=== PATIENT | male | born 1940 | race Caucasian/White ===

== ENCOUNTER 2016-11-26 08:32 | Inpatient (IN) | payer BC ==
--- NOTE | ~2016-11-26 | CO ---
Unit #: [id number] #: [id number] Patient: EMIR WILLIS [id number] [address] [place], [place] [address] [id number] MR#: [id number] NAME: EMIR WILLIS. ROOM: [facility] Age: 76 Sex: M Admission Date: 11/26/2016 : 1940 Attending Physician: Sascha Zamora M.D. Primary Care Physician: Pedrito Ramsey M.D. Consultation Date: 11/25/2016 CONSULTATION REPORT REASON FOR CONSULTATION Perioperative management of hemophilia B. HISTORY OF PRESENT ILLNESS Mr. Emir Willis is 76-year-old with a history of hemophilia B requires elective colonoscopy as well as inguinal hernia repair. 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 He is recommended to receive preop BeneFix 9200 units to restore levels to 100% prior to surgery followed by 5 days postop for total of 10 doses. Mr. Willis tells me he has generally been feeling well apart from having pain in his right groin. Hemophilia was diagnosed about 25 years ago after a long history of bleeding from childhood. His first episode when he had some teeth pulled and thereafter with shoulder surgery. He has been having factor replacement with BeneFix. He recently developed inguinal hernia after a hip injection. PAST MEDICAL HISTORY Hypertension, hemophilia B, degenerative arthritis. PAST SURGICAL HISTORY None recently. Previous teeth extraction and shoulder surgery. FAMILY HISTORY Younger brother with hemophilia. He has one son, who is probably hemophilia. He has sister. SOCIAL HISTORY Never smoker. Rarely drinks a beer. He is single. REVIEW OF SYSTEMS 14-point review of systems was taken. CONSTITUTIONAL: No recent change in appetite and weight. EYES: Negative. EARS, NOSE, MOUTH AND THROAT: Negative. CARDIOVASCULAR: Negative. RESPIRATORY: Negative. GASTROINTESTINAL: Negative. MUSCULOSKELETAL: Pain related to this hernia. GENITOURINARY: Negative. ALLERGIC/LYMPHATIC: Negative. SKIN: Negative. PSYCHIATRIC: Negative. Unit #: [id number] #: [id number] Patient: EMIR WILLIS PHYSICAL EXAMINATION GENERAL: He is a pleasant elderly man, awake, alert, and oriented x3. VITAL SIGNS: Admission vitals, temperature 98.8, pulse rate 96, respiratory rate 18, blood pressure 136/58, O2 saturation 96% on room air. HEENT: Shows pupils are equal and reactive well to light. No pallor or icterus. Mucous membranes are moist. NECK: Without adenopathy, JVD, or thyromegaly. CARDIOVASCULAR: First and second heart sounds are regular with no murmurs, gallops, or rubs. LUNGS: Chest expansion is symmetric bilaterally. Normal breath sounds. ABDOMEN: Soft, nontender. EXTREMITIES: Warm, good pulses. No edema, cyanosis, or clubbing. NEUROLOGIC: He is awake, alert, and oriented x3 without any focal findings. PSYCHIATRIC: Normal affect. SKIN: Negative. LYMPHATIC: Negative. DIAGNOSTIC STUDIES LABORATORY RESULTS: CBC with a white count of 16,300, hemoglobin is 13.9. ASSESSMENT AND PLAN Mr. Emir Willis is a 76-year-old with a history of mild hemophilia B who was to have a colonoscopy for a positive stool Hemoccult as well as elective right inguinal hernia repair. I discussed the BeneFix replacement with nursing as well as Dr. Guzman of Anesthesia with plans to have it administered and now postop. Subsequently, he will receive BeneFix or similar factor IX replacement every 12 hours for total of 10 doses that is 5 days with intention of restoring factor IX levels to 100%. I subsequently spoke to pharmacy. Apparently, Mr. Willis insurance only covers 80% of the cost leaving him response for 20% which will be unaffordable. He has currently 27260 units from [facility] and we will plan to get other factor IX replacements from manufacturers to see whether this can be used in the postop period following discharge home. Visiting nurses will administer the product at home. Thank you for allowing me to participate in his care. Dictated by... Heron Leigh M.D. DAVID/shana TD: 11/28/2016 00:55 JOB #: [id number] CONSULTATION REPORT X Heron Leigh MD X CONSULTATION REPORT
--- NOTE | ~2016-11-26 | DS ---
Unit #: [id number] #: [id number] Patient: SEYMOUR STEVEN [id number] [address] [place], [place] [address] [id number] MR#: [id number] NAME: SEYMOUR STEVEN ROOM: 470 Age: 76 Sex: M Admission Date: 11/26/2016 : 1940 Discharge Date: Attending Physician: Sascha Zamora M.D. Primary Care Physician: Pedrito Ramsey M.D. DISCHARGE SUMMARY HISTORY Mr. Steven is a 76-year-old gentleman who presented to the office with some intermittent rectal bleeding and a right inguinal hernia. Due to his history of hemophilia, he was seen by Hematology and BeneFIX 9200 units was ordered by the trimming press operator. He was brought in the morning of surgery where he underwent an unremarkable right inguinal hernia repair and a colonoscopy with removal of multiple large polyps. Each of the polyps was clipped to help effect hemostasis. He was put in for observation overnight and there was any evidence of any GI bleeding. The following morning his hemoglobin was stable at 13.9. Chemistries were normal. Today he will be discharged home in stable condition with instructions to ambulate ad toya but do no lifting greater than 15 pounds or strenuous activity. He can take a diet as tolerated. He is to follow up in the office in one to two weeks. Prescription for hydrocodone was left for pain control. The patient understood these instructions and will be discharged home in stable condition. Dictated by... Sadia Costello/tyrel TD: 11/27/2016 18:23 JOB #: [id number] DISCHARGE SUMMARY X Sascha Zamora MD X DISCHARGE SUMMARY
--- NOTE | ~2016-11-26 | OR ---
Unit #: [id number] #: [id number] Patient: SEYMOUR STEVEN [id number] [facility] [address]. [place], [place] [address] [id number] I MR#: [id number] NAME: SEYMOUR STEVEN ROOM: [facility] Date of Procedure: 11/26/2016 Admission Date: 11/26/2016 Surgeon: Sascha Zamora M.D. : 1940 Attending Physician: Sascha Zamora M.D. Primary Care Physician: Pedrito Ramsey M.D. OPERATIVE REPORT PREOPERATIVE DIAGNOSES Reducible right inguinal hernia and rectal bleeding. POSTOPERATIVE DIAGNOSES Colon polyps x15 and indirect right inguinal hernia. PROCEDURES PERFORMED Colonoscopy with snare polypectomy x15, hemoclipping x13, and tattooing x1. Open right inguinal hernia repair with PerFix plug mesh. ANESTHESIA General endotracheal anesthesia. ESTIMATED BLOOD LOSS Less than 20 mL. INDICATIONS FOR PROCEDURE Mr. Steven is a 76-year-old gentleman who presented to the office with rectal bleeding and a reducible right inguinal hernia that was causing discomfort. The patient has a history of hemophilia and was seen by Dr. Leigh from Hematology. Dr. Leigh has ordered perioperative factor replacement for his hemophilia. DESCRIPTION OF PROCEDURE The patient was admitted to [facility], positively identified, transported to the operating room, and after appropriate monitoring and induction of general endotracheal anesthesia with an LMA, he was placed in the frog-leg position. On rectal examination, no local anorectal pathology. Colonoscope was passed through the anal verge throughout the extent of the colon to the cecum. On antegrade and retrograde visualization, he had multiple large polyps; all of which were removed by snare polypectomy. There were 2 in the cecum; 5 in the ascending colon; 7 in the transverse colon and a large polyp at 30 cm. These were recovered and sent to laboratory. The one at 30 cm had a very broad base and I could not be certain that all of the broad base of the lesion that was excised, completely excised all of the polyp. The lesion was behind the fold and it was very technically difficult to complete. Because of his hemophilia and all the larger polyp sites, hemoclips were placed to help effect postoperative hemostasis. A total of 13 hemoclips were used. After completion of his colonoscopy, his colon was decompressed. He was placed in a supine position. His hair was clipped, and he was prepped and draped in the usual sterile fashion. A transverse Unit #: [id number] #: [id number] Patient: SEYMOUR STEVEN incision of the right inguinal canal was made. We dissected down through the soft tissue and exposed the external oblique aponeurosis. The aponeurosis was opened in the direction of its fibers to include the external ring. Cord structures were elevated from the floor of the inguinal canal. I dissected out the cord structures and I identified an indirect hernia sac. The sac was dissected free from the cord structures. The sac was twisted closed, suture ligated, and excess sac excised. The stump was reduced through the internal ring back in the peritoneal cavity. A small PerFix plug was placed in the preperitoneal space and secured with 0 Ethibond interrupted sutures. The onlay mesh was then secured to the pubic tubercle, stretched across the inguinal ligament, and the tails were wrapped around the cord structures as they exited the internal ring and secured the musculofascial tissues superior and lateral to the internal ring. The limbs were secured to the rectus sheath medially and the shelving edge of inguinal ligament laterally. The cord structures were placed back in the anatomic position. Local anesthetic was infiltrated and then the soft tissue was closed with 3-0 Vicryl running suture. The skin was closed with 4-0 Monocryl running subcuticular closure and Dermabond skin adhesive. Sponges and needle counts were correct x3. The patient tolerated the procedure well and was transported to recovery in stable condition. Findings and postoperative instructions were discussed with his family. Dictated by... Sadia Costello/shana TD: 11/27/2016 01:19 JOB #: [id number] OPERATIVE REPORT X Sascha Zamora MD PROCEDURE OPERATIVE NOTE
[~2016-11-26 08:32] MED LIST: PERCOCET 5-3251 TAB PO
[2016-11-26] MEDS ORDERED: HYDROCODON-ACE1 EAC5 PO (11:58)
[2016-11-26] MEDS ORDERED: GENTLE LAXATIVE5 M1 PO (11:59)
[2016-11-26] MEDS ORDERED: AMLODIPINE BESY10 MG PO (11:59)
[2016-11-26] MEDS ORDERED: DESYREL100 MG PO (12:26)
[2016-11-27 03:46] LABS: HEMATOCRIT 41.8 % (38.0-50.0); HEMOGLOBIN 13.9 gm/dL (13.0-16.0); MEAN CELL VOLUME 98.6 FL (83-96); MEAN CORPUSCULAR HEMOGLOBIN 32.8 PG (28-34); MEAN CORPUSCULAR HGB CONC 33.2 g/dL (30-36); MEAN PLATELET VOLUME 7.2 FL (6.5-11.5); RED BLOOD COUNT 4.24 X10e (3.90-5.60); RED CELL DISTRIBUTION WIDTH 12.7 % (11.0-15.5); WHITE BLOOD COUNT 16.3 X10e3 (4.0-10.5)
[2016-11-27 04:23] LABS: BLOOD UREA NITROGEN 11 mg/dL (9-23); BUN/CREATININE RATIO 15.71; CALCIUM SERUM 8.6 mg/dL (8.4-10.2); CARBON DIOXIDE 29 mmol/L (22-31); CHLORIDE 104 mmol/L (100-111); CREATININE SERUM 0.7 mg/dL (0.6-1.4); GLOM FILT RATE Estimated ABOVE60 mL/min (>60); GLUCOSE FASTING 127 mg/dL (70-110); POTASSIUM 3.7 mmol/L (3.5-5.1); SODIUM 137 mmol/L (135-145)
== END 2016-11-29 15:28 | disposition home health service (06) | DRG 350 ==
LOC: CSUR 08:32 → CPACUOF 13:40 → C4C 15:25
PROVIDERS: Specialist
PROC: 0DBK8ZX Excision of Ascending Colon, Via Natural or Artificial Opening Endoscopic, Diagnostic (ICD-10-PCS; 2016-11-26)
PROC: 0W3P8ZZ Control Bleeding in Gastrointestinal Tract, Via Natural or Artificial Opening Endoscopic (ICD-10-PCS; 2016-11-26)
PROC: 0DBH8ZX Excision of Cecum, Via Natural or Artificial Opening Endoscopic, Diagnostic (ICD-10-PCS; principal; 2016-11-26 11:00)
PROC: 0YU50JZ Supplement Right Inguinal Region with Synthetic Substitute, Open Approach (ICD-10-PCS; 2016-11-26 11:00)
PROC: 0DBE8ZX Excision of Large Intestine, Via Natural or Artificial Opening Endoscopic, Diagnostic (ICD-10-PCS; 2016-11-26 11:00)
PROC: 0DBL8ZZ Excision of Transverse Colon, Via Natural or Artificial Opening Endoscopic (ICD-10-PCS; 2016-11-26 11:00)
DX: K62.5 Hemorrhage of anus and rectum (principal); D67 Hereditary factor IX deficiency; D12.0 Benign neoplasm of cecum; D12.2 Benign neoplasm of ascending colon; D12.3 Benign neoplasm of transverse colon; D12.7 Benign neoplasm of rectosigmoid junction; Z98.49 Cataract extraction status, unspecified eye; K40.90 Unilateral inguinal hernia, without obstruction or gangrene, not specified as recurrent; I10 Essential (primary) hypertension
CPT/HCPCS: 80048; 85027; 88305; 94760; C1781; J0690; J1170; J2270; J2405; J3010; J7195

== ENCOUNTER 2016-12-05 19:50 | Emergency (ER) | payer OTHER ==
[2016-12-05 19:07] LABS: BASOPHIL# 0.1 X10e3 (0-0.3); BASOPHIL% 1.2 % (0-2.5); EOSINOPHIL# 0.2 X10e3 (0-0.7); EOSINOPHIL% 2.7 % (0.0-7.0); HEMATOCRIT 36.7 % (38.0-50.0); HEMOGLOBIN 12.4 gm/dL (13.0-16.0); LYMPHOCYTE# 1.7 X10e3 (1.0-3.5); LYMPHOCYTE% 21.6 % (17.0-45.0); MEAN CELL VOLUME 97.6 FL (83-96); MEAN CORPUSCULAR HEMOGLOBIN 32.8 PG (28-34); MEAN CORPUSCULAR HGB CONC 33.6 g/dL (30-36); MEAN PLATELET VOLUME 7.2 FL (6.5-11.5); MONOCYTE# 0.7 X10e3 (0-1.0); MONOCYTE% 8.8 % (3.0-12.0); NEUTROPHIL# 5.3 X10e3 (1.5-7.1); NEUTROPHIL% 65.7 % (40-75); PLATELET COUNT 340 X10e3 (140-420); RED BLOOD COUNT 3.76 X10e (3.90-5.60); RED CELL DISTRIBUTION WIDTH 12.5 % (11.0-15.5); WHITE BLOOD COUNT 8.1 X10e3 (4.0-10.5)
[2016-12-05 19:08] LABS: DIFF IND NO
[2016-12-05 19:23] LABS: INR 1.1; PARTIAL THROMBOPLASTIN TIME 30.5 SECONDS (23.5-31.3); PROTHROMBIN TIME (PATIENT) 11.1 SECONDS (9.6-11.5)
[~2016-12-05 19:50] MED LIST changes: +AMLODIPINE BESY10 MG PO; +DESYREL100 MG PO; +GENTLE LAXATIVE5 M1 PO; +HYDROCODON-ACE1 EAC5 PO
== END 2016-12-05 20:43 | disposition home or self-care (01) ==
LOC: CED 19:50
PROVIDERS: Emergency Medicine
DX: K91.840 Postprocedural hemorrhage of a digestive system organ or structure following a digestive system procedure (principal); D67 Hereditary factor IX deficiency; I10 Essential (primary) hypertension; Z98.890 Other specified postprocedural states
CPT/HCPCS: 36415; 85025; 85610; 85730; 96374; 99283

== ENCOUNTER 2017-03-04 13:26 | Emergency (ER) | payer OTHER ==
--- NOTE | ~2017-03-04 | CT2 ---
[facility] A Service of [facility] & [facility] RADIOLOGY TEXT RESULTS PATIENT: SEYMOUR WILLIS LOCATION: [facility] : 38 UNIT #: [id number] AGE: [address]: Delmar Vincent MD SEX: M ORDER DR: [id number] [facility] [address] [place], [place] [address] [id number] MR#: [id number] Acc #: [id number] NAME: SEYMOUR WILLIS. : 1940 SEX: M STUDY DATE/TIME: 03/04/2017 17:35 UNIT: [facility] ROOM: STUDY DESCRIPTION: CT Abd and Pelv W Cont Attending Physician: Delmar Vincent M.D. Ordering Physician: Delmar Vincent M.D. Primary Care Physician: Tila Courtney M.D. MEDICAL IMAGING REPORT This report is preliminary unless electronic signature is present EXAM CT of the abdomen and pelvis with contrast INDICATIONS Nausea, vomiting and diarrhea for [address] images were obtained from the dome of the diaphragm through the symphysis pubis following the administration of oral and intravenous contrast material. This CT exam was performed with one or more of the following radiation dose reduction techniques: Automatic exposure control, adjustment of mA and/or kV according to patient size, and iterative reconstruction. FINDINGS Images through the lung bases demonstrate some minimal atelectasis at the left lung base. There is a cyst identified within the left hepatic lobe which has increased in size when compared to the prior examination. Gallbladder, I think, is unremarkable. Spleen is within normal limits. There is a small hiatal hernia. There is a duodenal diverticulum. Adrenal glands and pancreas are unremarkable. Tiny low-attenuation lesion within the right kidney is favored to represent a cyst. There is some atherosclerotic involvement of the abdominal aorta which does extend to the visceral vessels. I do not see any free fluid or adenopathy within the abdomen. There is a small fat-containing umbilical hernia. The appendix is visualized and is within normal limits. Prostate gland is enlarged and contains dystrophic calcifications. There is some stranding seen within the right inguinal region, clinical significance is uncertain. Correlation with any evidence of infection is suggested, as this potentially may reflect some inflammation of the spermatic cord. [facility]. [facility] A Service of [facility] RADIOLOGY TEXT RESULTS PATIENT: SEYMOUR WILLIS LOCATION: [facility] : 38 UNIT #: [id number] AGE: [address]: Delmar Vincent MD SEX: M ORDER DR: There are advanced degenerative changes seen involving the right hip. These are certainly much more pronounced than on the prior study from 2011. There is mild lumbar scoliosis with convexity to the left. IMPRESSION 1. This patient is noted to have inflammation within the right inguinal canal surrounding the spermatic cord. This could reflect some infection or inflammation, i.e., vasitis. Please correlate with clinical presentation and findings within this area. 2. No evidence of mechanical bowel obstruction. 3. Small hiatal hernia. 4. Left hepatic cyst and probable tiny right renal cyst as well. 5. The appendix is visualized and is within normal limits. 6. Prostatic enlargement. Dictated by... Nadege Harrell M.D. THIS IS AN ELECTRONICALLY VERIFIED REPORT Nadege Harrell M.D. at 03/05/2017 10:57 AM AFF/psc TD: 03/05/2017 00:58 JOB #: [id number] MEDICAL IMAGING REPORT Page 1 of 1 COPY
[2017-03-04 16:40] LABS: BASOPHIL% 0.6 % (0-2.5); EOSINOPHIL% 0.6 % (0.0-7.0); HEMATOCRIT 40.8 % (38.0-50.0); HEMOGLOBIN 13.3 gm/dL (13.0-16.0); LYMPHOCYTE# 1.8 X10e3 (1.0-3.5); LYMPHOCYTE% 22.6 % (17.0-45.0); MEAN CELL VOLUME 92.1 FL (83-96); MEAN CORPUSCULAR HGB CONC 32.5 g/dL (30-36); MEAN PLATELET VOLUME 7.6 FL (6.5-11.5); MONOCYTE# 0.7 X10e3 (0-1.0); MONOCYTE% 9.3 % (3.0-12.0); NEUTROPHIL# 5.3 X10e3 (1.5-7.1); NEUTROPHIL% 66.9 % (40-75); PLATELET COUNT 343 X10e3 (140-420); RED BLOOD COUNT 4.43 X10e (3.90-5.60); WHITE BLOOD COUNT 7.9 X10e3 (4.0-10.5)
[2017-03-04 16:42] LABS: DIFF IND NO
[2017-03-04 17:00] LABS: URINE SOURCE CLEAN CATCH
[2017-03-04 17:09] LABS: URINE APPEARANCE CLEAR; URINE BLOOD NEG (NEG); URINE COLOR DK YELLOW; URINE GLUCOSE NEG (NEG); URINE KETONE 2+ (NEG); URINE LEUKOCYTE ESTERASE NEG (NEG); URINE NITRATE NEG (NEG); URINE PROTEIN NEG (NEG); URINE SPECIFIC GRAVITY 1.031 (1.003-1.035)
[2017-03-04 17:14] LABS: URINE BILIRUBIN NEG (NEG)
[2017-03-04 17:15] LABS: CULTURE INDICATED? NO
[2017-03-04 17:16] LABS: BILIRUBIN, DIRECT 0.2 mg/dL (0.0-0.2); BILIRUBIN,INDIRECT 0.5 mg/dL (0.0-0.9); BILIRUBIN,TOTAL 0.7 mg/dL (0.2-2.0); CALCIUM SERUM 9.1 mg/dL (8.4-10.2); CREATININE SERUM 0.8 mg/dL (0.6-1.4); POTASSIUM 3.4 mmol/L (3.5-5.1); PROTEIN TOTAL SERUM 7.1 g/dL (6.0-8.3)
== END 2017-03-04 19:05 | disposition home or self-care (01) ==
LOC: CED 13:26
DX: N49.1 Inflammatory disorders of spermatic cord, tunica vaginalis and vas deferens (principal); R19.7 Diarrhea, unspecified; I10 Essential (primary) hypertension; Z79.899 Other long term (current) drug therapy
CPT/HCPCS: 36415; 74177; 80048; 80076; 81003; 83690; 85025; 96360; 99284; Q9967